=== PATIENT | female | born 1990 | race Caucasian/White ===

== ENCOUNTER → 2023-07-02 09:31 | Outpatient (REF) | payer BC, SELFPAY | LOC: WDC 09:31 | PROVIDERS: ATTENDING PHYSICIAN Obstetrics & Gynecology; FAMILY PHYSICIAN Internal Medicine | DX: N63.10 Unspecified lump in the right breast, unspecified quadrant (principal); Z80.3 Family history of malignant neoplasm of breast; N63.11 Unspecified lump in the right breast, upper outer quadrant | CPT/HCPCS: 76642; 77062; 77066 ==

== ENCOUNTER 2024-02-23 15:04 | Emergency (ER) | payer OTHER, SELFPAY ==
[2024-02-23 15:13] VITALS: BP 150/80
--- NOTE | 2024-02-23 15:36 | ED.GENMED ---
History of Present Illness
General
Chief Complaint: Back Pain
Time Seen by Provider: 02/23/24 15:27
History of Present Illness
History of Present Illness:
TIME OF INITIAL ENCOUNTER: 3:40 PM
HPI: The patient presents due to 10 days of low back pain. She states that this started when she reached down to pick some up. At that time she had some discomfort that went away and then more recently returned. She denies any fevers, any IV drug
use, any history of cancer. She states that she had paresthesias in the hands and feet earlier today which were bilateral but of since resolved. She has no bowel or bladder incontinence or retention.
EXAM:
GENERAL: Well appearing in no distress
HEENT: Moist oral mucosa
CARDIOVASCULAR: No murmurs, normal heart rate, regular rhythm, No chest wall tenderness
PULMONARY: No respiratory distress, breath sounds are clear and equal
ABDOMEN: Soft with no peritoneal signs, no tenderness
NEUROLOGIC: Excellent strength all extremities, no coordination deficits
BACK: There is no midline L-spine tenderness, negative straight leg raise bilaterally, good strength in an L5 and S1 distribution, decreased active range of motion of the thoracolumbar spine due to pain
PSYCHIATRIC: Appropriate mental status, normal insight and judgement
EXTREMITIES: Nontender, no edema, moves all extremities equally
SKIN: No rash, no lesions
NUMBER AND COMPLEXITY OF PROBLEMS ADDRESSED AT THE ENCOUNTER
� Chronic conditions affecting care: No significant past medical history
� Acute Exacerbation and/or Progression of Chronic Illness: This is an acute problem
� Differential Diagnosis includes: Muscle spasm, sciatica less likely, anxiety/hyperventilation
AMOUNT AND/OR COMPLEXITY OF DATA TO BE REVIEWED AND ANALYZED
� I performed an independent evaluation of and my interpretation is:
EKG:
CT:
X-rays:
Laboratory Studies:
Other:
� Review of other/old records: I reviewed records, the patient has not been here since being seen in 2009 for a foot wound. Basic blood work in 2016 and 2018 was unremarkable.
� Clinical information was obtained by an independent historian: I spoke to at bedside
� Prescriptions/Medications Considered but not given: Offered/considered benzos however the patient declines
� Further testing considered but not performed: Patient has no back pain red flags therefore we will hold off on any imaging
RISK OF COMPLICATIONS AND/OR MORBIDITY OR MORTALITY OF PATIENT MANAGEMENT
� Social determinants of health affecting care: Offered and considered benzos however the patient declines
� Discussion with other providers:
� Escalation of care including admission/observation vs risk of discharge considered: Favor more of a lumbar muscle spasm as opposed to any other serious etiology. No clear indication for imaging at this time. She has an
unremarkable neurologic exam. Will try Toradol/Flexeril here and recommend increased dose of ibuprofen at home. She had only been taking 400 mg more recently as she has been feeling better. I have also given the contact information for local
orthopedist.
ANY OTHER UPDATES:
Past History
Past History
ED Past Medical History: None
ED Past Surgical History: None
Phy Exam
Physical Exam
Physical Exam:
See HPI
Course
Orders/Labs/Results
Orders:
Orders
02/23/24 15:49
Cyclobenzaprine HCl [Flexeril] 10 mg PO NOW STA
Ketorolac [Toradol] 30 mg IM NOW STA
Vital Signs
Initial and Last Documented VS:
Initial Vital Signs
Temp Pulse Resp BP Pulse Ox
36.8 C 98 18 150/80 100
02/23/24 15:13 02/23/24 15:13 02/23/24 15:13 02/23/24 15:13 02/23/24 15:13
Last Documented Vital Signs
Temp Pulse Resp BP Pulse Ox
36.8 C 98 18 150/80 100
02/23/24 15:13 02/23/24 15:13 02/23/24 15:13 02/23/24 15:13 02/23/24 15:13
*Critical Care Note
Total Time (30-74mins, 75-104mins- exclusive of procedures): Not Applicable
ED Attending Note
-
Portions of this chart may have been created with voice recognition software.� Occasional wrong word or��sound alike� substitutions may have occurred due to the inherent limitations of voice recognition software.
Discharge Plan
Departure
Patient Disposition: Home (Routine Discharge)
Date of Disposition: 02/23/24
Time of Disposition: 15:50
Patient with high blood pressure during this ER visit?: Yes
Discharge Problem:
Spasm of muscle of lower back
Instructions: Low Back Pain (DC)
Prescriptions:
New
cyclobenzaprine 10 mg tablet
10 mg PO Q8H PRN (Reason: pain) Qty: 15 0RF
Referrals:
Arslan Crenshaw MD [Family Provider] -
Alvaro Sparrow MD [Active] - Follow up in 2-3 days
Activity Restrictions/Additional Instructions:
Please follow-up with your primary care doctor and I have also given you the contact information for local orthopedist, Dr. Sparrow. I recommend 3-4 [id number] ibuprofen (Motrin) every 8 hours with food for a few days. Return here if worse.
You can take ibuprofen and Flexeril together as they work in separate ways. Do not drive if you take Flexeril as it can be somewhat sedating.
Interventions
Interventions:
*Risk Screen - Suicide Last Done: 02/23/24 15:13
*General Assessment Last Done: 02/23/24 15:13
*Neglect/Abuse Screening Last Done: 02/23/24 15:13
ED- Fall Risk Assessment Last Done: 02/23/24 16:10
*ED COVID-19 Vaccine History Last Done: 02/23/24 15:13
*Nursing Disposition Last Done: 02/23/24 16:10
ED-Musculoskeletal Assessment Last Done: 02/23/24 16:10
Discharge Date and Time
Discharge Date/Time: 02/23/24 16:17
Print Language: CZECH
[2024-02-23] MEDS: TORADOL 30 MG IM (16:00)
[2024-02-23] MEDS: FLEXERIL 10 MG PO (16:00)
== END 2024-02-23 16:17 | disposition home or self-care (01) ==
LOC: EMR 15:04
PROVIDERS: EMERGENCY PHYSICIAN Emergency Medicine; FAMILY PHYSICIAN Internal Medicine
DX: M62.830 Muscle spasm of back (principal)
CPT/HCPCS: 96372; 99284